=== PATIENT | male | born 1985 | race Caucasian/White ===

== ENCOUNTER → 2020-11-29 12:52 | Outpatient (CLI) | payer OTHER, SELFPAY ==
[2020-11-29 22:08] LABS: COVID19 - ORCAS (NP or Nasal) Negative (Negative)
== END ==
PROVIDERS: PCP Family Medicine; Visit Provider Physician Assistant Medical
DX: Z20.822 Contact with and (suspected) exposure to COVID-19 (principal)
CPT/HCPCS: U0003